=== PATIENT | male | born 1950 | race Caucasian/White ===

== ENCOUNTER 2022-10-05 07:53 | Outpatient (CLI) | payer MEDICARE, BC, SELFPAY ==
--- NOTE | 2022-10-05 09:10 | W.ANESCHARGE ---
Anesthesia Charges Start Date/Time Anesthesia Start Date: 10/05/22 Anesthesia Start Time: 08:54 Stop Date/Time Anesthesia Stop Date: 10/05/22 Anesthesia Stop Time: 09:08
== END 2022-10-05 07:54 | disposition home or self-care (01) ==
LOC: OP CLINIC 07:54
PROVIDERS: PCP Family Medicine; Visit Provider Internal Medicine
DX: K22.70 Barrett's esophagus without dysplasia (principal); K22.89 Other specified disease of esophagus
CPT/HCPCS: 00731; 43239; 88305; J2704

== ENCOUNTER 2023-03-15 07:54 | Outpatient (CLI) | payer MEDICARE, BC, SELFPAY ==
--- NOTE | 2023-03-15 09:14 | W.ANESCHARGE ---
Anesthesia Charges Start Date/Time Anesthesia Start Date: 03/15/23 Anesthesia Start Time: 08:32 Stop Date/Time Anesthesia Stop Date: 03/15/23 Anesthesia Stop Time: 09:13
--- NOTE | 2023-03-15 11:32 | W.ANESCHARGE ---
Anesthesia Charges Start Date/Time Anesthesia Start Date: 03/15/23 Anesthesia Start Time: 08:32 Stop Date/Time Anesthesia Stop Date: 03/15/23 Anesthesia Stop Time: 09:13 Summary Extremes of Age - Over 70 or under 1: MDA
== END 2023-03-15 07:55 | disposition home or self-care (01) ==
LOC: OP CLINIC 07:54
PROVIDERS: PCP Family Medicine; Visit Provider Internal Medicine
DX: Z12.11 Encounter for screening for malignant neoplasm of colon (principal); K63.5 Polyp of colon; K62.1 Rectal polyp; Z86.010 Personal history of colon polyps
CPT/HCPCS: 00811; 45380; 88305; 99100; J2704

== ENCOUNTER 2023-12-19 10:43 | Outpatient (CLI) | payer MEDICARE, BC, SELFPAY | END 2023-12-19 10:44 | disposition home or self-care (01) | PROVIDERS: PCP Family Medicine; Visit Provider Family Medicine | DX: I10 Essential (primary) hypertension (principal); Z85.46 Personal history of malignant neoplasm of prostate; Z12.5 Encounter for screening for malignant neoplasm of prostate; Z13.220 Encounter for screening for lipoid disorders | CPT/HCPCS: 80048; 80061; 84153 ==

== ENCOUNTER 2025-03-23 10:43 | Outpatient (CLI) | payer MEDICARE, BC, SELFPAY | END 2025-03-23 10:44 | disposition home or self-care (01) | PROVIDERS: PCP Family Medicine; Visit Provider Family Medicine | DX: I10 Essential (primary) hypertension (principal); K21.9 Gastro-esophageal reflux disease without esophagitis; Z85.46 Personal history of malignant neoplasm of prostate | CPT/HCPCS: 80048; 80061; 84153 ==